=== PATIENT | male | born 1960 | race Caucasian/White ===

== ENCOUNTER 2017-01-30 16:44 | Inpatient (IN) ==
[2017-01-30] MEDS ORDERED: 0.9 % Sodium Chloride 1,000 ML IVC ONE (17:02)
[2017-01-30] MEDS ORDERED: Ondansetron 4 MG/2 ML VIAL IVP ONE (17:02)
[2017-01-30] MEDS ORDERED: *HR* Morphine 2 MG/ML SYRINGE IVP ONE (17:02)
--- NOTE | 2017-01-30 17:07 | Emergency Department Note ---
Disposition Clinical Impression: Diverticulitis Qualifiers: Diverticulitis site: large intestine Diverticulitis bleeding: without bleeding Diverticulitis complication: with abscess Qualified Code(s): K57.20 - Diverticulitis of large intestine with perforation and abscess without bleeding Disposition: Admitted As Inpatient Condition: Good Abdominal Pain HPI - General Chief Complaint: ED Abdominal Pain Stated Complaint: Diverticulitis Time Seen by Provider: 01/30/17 16:52 Source: patient Mode of arrival: private vehicle Limitations: no limitations Nursing Notes Reviewed: Yes Vital Signs Reviewed: Yes - History of Present Illness HPI Narrative: 56-year-old male history of diverticulitis with prior abscess formation 3 years ago treated nonoperatively who presents to the ER due to left lower quadrant abdominal pain. Patient states he has had pain since yesterday. Denies any fevers chills nausea vomiting or diarrhea at home. He had outpatient labs today that were not related to his symptoms but elected to come after. He reports 3 years ago he was diagnosed with diverticulitis and was hospitalized due to abscess. It was treated nonoperatively with IV antibiotics. States his last flare was roughly 1 year ago. He denies any other complaints. Pt Subjective Complaint: abdominal pain Onset (ago): day(s) Consistency: constant Location: LLQ Pain Severity: moderate Pain Scale: 5 Quality: stabbing Radiation: none Migration to: no migration Improves with: nothing Worsens with: nothing Context: history of similar episodes Associated symptoms: Denies: nausea, vomiting, diarrhea, fever Treatments prior to arrival: none - Related Data Home Medications Medication Instructions Recorded Confirmed No Known Home Drugs 01/30/17 01/30/17 Allergies Allergy/AdvReac Type Severity Reaction Status Date / Time No Known Allergies Allergy Verified 01/30/17 16:50 All systems ED: reviewed and negative except as stated. Constitutional: Denies: fever, chills Gastrointestinal: Reports: abdominal pain. Denies: nausea, vomiting, diarrhea Genitourinary: Denies: dysuria, hematuria Abdominal Pain PMH - Past Medical History Medical history: Reports: other Male Surgical History: Reports: no surgical history Psychiatric history: Reports: no psych history - Social History Smoking status: Never smoker Alcohol use: Reports: none Drug use: Reports: none Physical Exam - General Limitations: no limitations General appearance: alert, in no apparent distress - Head Head exam: atraumatic, normocephalic, normal inspection - Eye Eye exam: Present: normal appearance - ENT ENT exam: normal exam - Chest Chest inspection: Present: normal inspection, symmetric chest wall rise - Respiratory Respiratory exam: Present: normal lung sounds bilaterally - Cardiovascular Cardiovascular exam: Present: regular rate, normal rhythm, normal heart sounds - Abdominal Exam Abdominal exam: Present: soft, tenderness (There is moderate tenderness to palpation in the left upper and left lower quadrants without guarding or rigidity.) - Extremities Exam Extremities exam: Present: normal inspection, full ROM - Expanded Upper Extremity Exam Shoulder exam: Present: normal inspection, full ROM Arm exam: Present: normal inspection, full ROM Elbow exam: Present: normal inspection, full ROM Forearm/Wrist exam: Present: normal inspection, full ROM Hand exam: Present: normal inspection, full ROM - Expanded Lower Extremity Exam Hip/Pelvis exam: Present: normal inspection, full ROM Upper leg exam: Present: normal inspection, full ROM Knee exam: Present: normal inspection, full ROM Lower leg exam: Present: normal inspection, full ROM Ankle exam: Present: normal inspection, full ROM Foot/toe exam: Present: normal inspection, full ROM - Neurological Exam Neurological exam: Present: alert, other (GCS 15. Nonfocal) - Psychiatric Psychiatric exam: Present: normal affect, normal mood Course Course Narrative: Patient seen and examined. Afebrile here. We will obtain a CT scan of the abdomen and pelvis as well as labs. Patient given IV fluids, morphine and Zofran for pain and nausea. - Reevaluation(s) Reevaluation #1: Discussed results of imaging and lab work with the patient. He has a small abscess formation. No perforation identified. He is agreeable to staying in the hospital for IV antibiotics. Vital Signs Temperature 97.8 F 01/30/17 16:47 Pulse Rate 93 01/30/17 16:47 Respiratory Rate 20 01/30/17 16:47 Blood Pressure 127/88 01/30/17 16:47 O2 Sat by Pulse Oximetry 95 01/30/17 16:47 Temperature 98.1 F 01/30/17 20:24 Pulse Rate 76 01/30/17 20:24 Respiratory Rate 16 01/30/17 20:24 Blood Pressure 139/91 01/30/17 20:24 O2 Sat by Pulse Oximetry 96 01/30/17 20:24 Oxygen Delivery Oxygen Delivery Room Air Abdominal Pain - MDM Narrative Medical decision making narrative: 56-year-old male with history of diverticulitis presents to the ER to the left lower quadrant abdominal pain. Started yesterday. No fevers chills nausea vomiting or diarrhea at home. CT scan demonstrates acute diverticulitis with early abscess formation. Patient given IV Cipro and Flagyl here admitted to the hospitalist service for continued care. - Lab Data Lab results reviewed: Yes I reviewed the patient's lab results. Result diagrams: 01/30/17 17:13 01/30/17 17:13 Lab Results 01/30/17 01/30/17 Range/Units 17:13 17:13 WBC 12.2 H (4.3-11.1) K/mcL RBC 5.34 (4.19-5.50) M/mcL Hgb 17.0 H (12.9-16.9) g/dL Hct 49.2 (37.5-50.1) % MCV 92.1 (83.0-100.0) fL MCH 31.8 (28.0-33.3) pg MCHC 34.6 (31.6-35.5) g/dL RDW 12.2 (11.5-14.5) % Plt Count 179 (140-400) K/mcL MPV 11.5 (9.4-12.4) fL Immature Gran % 0.3 (0-4) % Seg Neutrophils % 72.8 % Lymphocytes % 13.2 % Monocytes % 11.4 % Eosinophils % 1.6 % Basophils % 0.7 % Neutrophils # 8.9 (1.6-8.9) K/mcL Lymphocytes # 1.6 (0.6-4.6) K/mcL Monocytes # 1.4 H (0.0-1.3) K/mcL Eosinophils # 0.2 (0.0-0.6) K/mcL Basophils # 0.1 (0.0-0.2) K/mcL Platelet Estimate Normal (Normal) Immature Plt Fraction 10.9 H (1.1-6.1) % Sodium 136 (136-145) mEq/L Potassium 4.2 (3.5-4.5) mEq/L Chloride 101 (98-109) mEq/L Carbon Dioxide 24 (19-29) mEq/L BUN 14 (8-26) mg/dL Creatinine 1.00 (0.72-1.25) mg/dL Est GFR ( Amer) > 60 (> 60) Est GFR (Non-Af Amer) > 60 (> 60) BUN/Creatinine Ratio 14 (6-26) Glucose 158 H (70-99) mg/dL Calculated Osmolality 286 (280-300) Calcium 9.9 (8.6-10.8) mg/dL Total Bilirubin 1.1 (0.2-1.2) mg/dL Direct Bilirubin 0.4 (0.0-0.5) mg/dL Indirect Bilirubin 0.7 (0.0-1.2) mg/dL AST 49 H (5-34) Units/L ALT 50 (0-55) Units/L Alkaline Phosphatase 107 (38-126) Units/L Serum Total Protein 8.0 (6.0-8.3) g/dL Albumin 3.7 (3.5-5.0) g/dL Globulin 4.3 H (2.4-3.5) g/dL Albumin/Globulin Ratio 0.9 L (1.1-2.2) Lipase 29 (8-78) Units/L - Radiology Data Radiology results reviewed: Yes I reviewed the patient's radiology results. Abdomen/Pelvis CT 01/30/17 17:03 IMPRESSION: 1. Acute diverticulitis of the descending colon at the level of the junction of the descending colon and sigmoid colon. There is an apparent small rim enhancing fluid collection which is closely associated with the wall of the colon measuring 1.2 x 1.8 cm concerning for small or early abscess formation. No free air identified. 2. 2 mm nonobstructing left renal stone. D/ / Orlando Rm MD / Orlando Rm MD Interpreting Provider: Orlando Rm MD S.B.A.R. - S.B.A.R. Situation: Demographics, MOA Background: Presenting Complaint, Relevant PMH, Meds, & Allergies Assessment: Vital Signs, Course and respsone to treatment, Exam Concerns, Patient/Family Expectation, Pertinant Lab Results Recommendation: Barrier(s) to disposition, Recommendation based on pending studies, treatments, or consults S.B.A.R. Report Given to: Dr. Marcin Sanchez Repor Time: 19:44 Attestation Statement - Attestation Attestation: I examined this patient and my medical decision-making was reviewed with the Resident Physician. I agree with the documented findings, disposition and treatment plan as described except to the extent set forth below. Acute diverticulitis with abscess. Antibiotics initiated. Will admit for surgical consultation.
[2017-01-30 17:21] LABS: Basophils # 0.1 K/mcL (0.0-0.2); Basophils % 0.7 %; Eosinophils # 0.2 K/mcL (0.0-0.6); Eosinophils % 1.6 %; Hematocrit 49.2 % (37.5-50.1); Immature Granulocytes % 0.3 % (0-4); Immature Platelets 10.9 % (1.1-6.1); Lymphocytes # 1.6 K/mcL (0.6-4.6); Lymphocytes % 13.2 %; Mean Corpuscular HGB Conc 34.6 g/dL (31.6-35.5); Mean Corpuscular Hemoglobin 31.8 pg (28.0-33.3); Mean Corpuscular Volume 92.1 fL (83.0-100.0); Mean Platelet Volume 11.5 fL (9.4-12.4); Monocytes # 1.4 K/mcL (0.0-1.3); Monocytes % 11.4 %; Neutrophils # 8.9 K/mcL (1.6-8.9); Platelet Count 179 K/mcL (140-400); Red Blood Count 5.34 M/mcL (4.19-5.50); Red Cell Distribution Width 12.2 % (11.5-14.5); Segmented Neutrophils % 72.8 %
[2017-01-30 17:23] LABS: Platelet Estimate Normal (Normal)
[2017-01-30 17:34] LABS: Alanine Aminotransferase 50 Units/L (0-55); Albumin 3.7 g/dL (3.5-5.0); Albumin/Globulin Ratio 0.9 (1.1-2.2); Alkaline Phosphatase 107 Units/L (38-126); Aspartate Amino Transferase 49 Units/L (5-34); BUN/Creatinine Ratio 14 (6-26); Bilirubin,Direct 0.4 mg/dL (0.0-0.5); Bilirubin,Indirect 0.7 mg/dL (0.0-1.2); Bilirubin,Total 1.1 mg/dL (0.2-1.2); Blood Urea Nitrogen 14 mg/dL (8-26); Calcium 9.9 mg/dL (8.6-10.8); Carbon Dioxide 24 mEq/L (19-29); Chloride 101 mEq/L (98-109); Globulin 4.3 g/dL (2.4-3.5); Glucose 158 mg/dL (70-99); Lipase 29 Units/L (8-78); Osmolality,Calculated 286 (280-300); Potassium 4.2 mEq/L (3.5-4.5); Sodium 136 mEq/L (136-145); eGFR For African Americans > 60 (> 60); eGFR For Non-African Americans > 60 (> 60)
[2017-01-30] MEDS ORDERED: MetroNIDAZOLE 500 MG/100 ML 500 MG/100 ML BAG IVPB ONE (19:18)
--- NOTE | 2017-01-30 21:47 | Event Note ---
Date of Encounter: 01/30/17 Time of Encounter: 21:46 Patient seen and examined with nurse practitioner. Acute diverticulitis with abscess. Ciprofloxacin and Flagyl. Keep NPO. Surgery consultation.
[2017-01-30] MEDS ORDERED: *HR* Morphine 2 MG/ML SYRINGE IVP PRN (21:59)
[2017-01-30] MEDS ORDERED: *HR* HYDROcodone/Acet 5/325 mg TABLET PO PRN (21:59)
[2017-01-30] MEDS ORDERED: Naloxone 0.4 MG/ML INJ IVP PRN (21:59)
[2017-01-30] MEDS ORDERED: Ondansetron 4 MG/2 ML VIAL IVP PRN (21:59)
[2017-01-30 22:04] LABS: C-Reactive Protein 31 mg/L (Less than 5)
--- NOTE | 2017-01-30 22:13 | Internal Med History&Physical ---
Date of Encounter: 01/30/17 Time of Encounter: 21:00 Assessment and Plan (1) Diverticulitis Current visit: Yes Status: Acute Hx of diverticulosis and diverticulitis. CT abdomen/pelvis shows acute diverticulitis of the descending colon at the level of the junction of the descending colon and sigmoid colon with apparent small rim-enhancing fluid collection which is closely associated with the wall of the colon measuring 1.2 1.8 cm concerning for small or early abscess formation. IVPB ciprofloxacin 400 mg Q12 and flagyl 500 mg Q6 for infection coverage. Surgery consult placed. Monitor f/u labs for WBC status. Patient does not currently meet sepsis criteria. Will monitor closely. Pt. at high risk for further morbidity based on infection/abscess and will be inpatient. Qualifiers: Diverticulitis site: large intestine Diverticulitis bleeding: without bleeding Diverticulitis complication: with abscess Qualified Code(s): K57.20 - Diverticulitis of large intestine with perforation and abscess without bleeding (2) Leukocytosis Current visit: Yes Status: Acute Acute leukocytosis with WBC of 12.2. IVPB ciprofloxacin and flagyl ordered for infection coverage. Monitor f/u labs. Qualifiers: Leukocytosis type: unspecified Qualified Code(s): D72.829 - Elevated white blood cell count, unspecified (3) Elevated AST (SGOT) Current visit: Yes Status: Acute Acute elevation of AST (49). Pt. denies heavy EtOH use, hx of hepatitis, or celiac disease. Hepatic panel ordered in a.m. labs. (4) History of diverticulosis Current visit: Yes Status: Chronic Hx of chronic diverticulosis. Pt. ate several candy bars w/nuts for several days prior to abdominal pain. Pt. educated on diverticulosis, diverticulitis, and what foods to avoid. (5) DVT prophylaxis Current visit: Yes Status: Acute Bilateral SCDs on LEs for DVT prophylaxis due to possible surgical intervention for abscess r/t diverticulitis. Internal Medicine - H&P: HPI Chief complaint: Abdominal pain Admitted From: Emergency Dept Plans for Post Hospital Care: Home History of present illness: Mr. Parra is a 56 year old male with medical history of diverticulosis presents from the ED with chief complaint of abdominal pain since yesterday. Patient reports he had similar pain 3 years ago with about of diverticulitis which did not require surgical intervention for diagnosis of abscess. Patient states he was placed on IV antibiotics. Patient describes pain as located in his left lower quadrant with aggravating factor of laying on his left side and relieving factors of walking and standing. Patient's reports he ate candy bars with nuts over the past several days. Patient reports flareup approximately 1 year ago. Patient denies any recent illness, fever, chills, nausea, vomiting, diarrhea, constipation, unusual bleeding, changes in vision, lightheadedness, dizziness, chest pain, palpitations, presyncope, or syncope. Past Med Surg Social Fam HX - Past Medical History Source: patient, old records reviewed, obtained from family Medical history: other (Diverticulosis) Psychiatric history: no psych history - Past Surgical History Surgical History: no surgical history - Social History Smoking Status: Former smoker Packs per day: 1 PPD - Reports quitting 20 years ago Alcohol use: none Drug use: none Current living situation: Home, With Family Activity Level: Independent ambulation, Very active Recent Out of Country Travel Within the Last 8 Weeks: No Exposure or Possible Exposure to Illness During Travel: No - Family History Father Race: Family Member Ethnicity: Non- Living Status: Age at : 62 Cause of : Colon cancer Hx Family Cardiac Disorders: Yes (NE) Hx Family Cancer: Yes (Colon) Mother Race: Family Member Ethnicity: Non- Living Status: Still Living Hx Family Cardiac Disorders: Yes (HTN) Hx Family Cancer: Yes (Breast) Hx Family Endocrine Disorder: Yes (DM) Brother Race: Family Member Ethnicity: Non- Living Status: Still Living Hx Family Medical Disorders: No Sister Race: Family Member Ethnicity: Non- Living Status: Still Living Hx Family Medical Disorders: No Internal Medicine - H&P: Meds No Known Home Drugs 01/30/17 [History] 3 Allergy/AdvReac Type Severity Reaction Status Date / Time No Known Allergies Allergy Verified 01/30/17 16:50 All Systems PM: A 10-system review of systems was performed and is negative for pertinent findings except as documented above in the HPI. - Constitutional Constitutional: no chills, no fever(s), no night sweats - EENT Eyes: no change in vision, no discharge, no pain, no photophobia Ears: no ear discharge, no ear pain, no tinnitus Nose, mouth and throat: no dysphagia, no nasal discharge, no neck pain, no sore throat - Breasts Breasts: as per HPI - Cardiovascular Cardiovascular ROS IM: no chest pain, no diaphoresis, no dyspnea, no lightheadedness, no palpitations, no syncope - Respiratory Respiratory: no cough, no dyspnea, no wheezing, no excessive phlegm production - Gastrointestinal Gastrointestinal: as per HPI, abdominal pain - Genitourinary Genitourinary ROS male: as per HPI - Musculoskeletal Musculoskeletal ROS IM: no numbness, no tingling - Integumentary Integumentary IM: no rash, no unusual bruising - Neurological Neurological ROS: no confusion, no convulsions, no focal weakness, no numbness, no tingling, no tremor(s) - Psychiatric Psychiatric: as per HPI - Endocrine Endocrine IM: as per HPI - Hematologic/Lymphatic Hematologic/Lymphatic: no easy bruising - Allergic/Immunologic Allergic/Immunologic: as per HPI - Constitutional Vitals: Temp Pulse Resp BP Pulse Ox 98.1 F 76 16 139/91 96 01/30/17 20:24 01/30/17 20:24 01/30/17 20:24 01/30/17 20:24 01/30/17 20:24 General appearance: Present: cooperative, mild distress, A&O X 3, pleasant, obese, answers questions appropriately - Head Head exam: Present: atraumatic, normocephalic - Eye Eye exam: Present: PERRL, conjuntiva pink, sclera anicteric Pupils: Present: PERRL - ENT ENT exam: Present: normal exam, normal external ear exam - Neck Neck exam general surgery: Present: normal inspection, supple, trachea midline. Absent: lymphadenopathy - Respiratory Respiratory exam: Present: CTAB. Absent: accessory muscle use, rales, rhonchi, wheezes - Cardiovascular Cardiovascular exam: Present: RRR, +S1, +S2. Absent: diastolic murmur, gallop, rubs, systolic murmur - GI/Abdominal GI/Abdominal exam: Present: guarding, normal bowel sounds, soft, tenderness - Rectal Rectal exam: Present: deferred - Additional comments: Gu exam deferred. - Extremities Exam Extremities exam: Present: warm, radial pulses palpable and symmetrical. Absent : calf tenderness, cyanotic, pedal edema - Back Exam Back exam: Present: normal inspection - Neurological Exam Neurological exam: Present: CN II-XII intact, oriented X3, no focal deficits. Absent: pronater drift, facial droop, speech deficit - Psychiatric Psychiatric exam: Present: normal affect, normal mood - Skin Skin exam: Present: dry, intact Internal Med - H&P Results - Labs CBC & Chem 7: 01/30/17 17:13 01/30/17 17:13 - Diagnostic Studies CT scan - abdomen Additional comments: Impressions Abdomen/Pelvis CT 01/30/17 17:03 IMPRESSION: 1. Acute diverticulitis of the descending colon at the level of the junction of the descending colon and sigmoid colon. There is an apparent small rim enhancing fluid collection which is closely associated with the wall of the colon measuring 1.2 x 1.8 cm concerning for small or early abscess formation. No free air identified. 2. 2 mm nonobstructing left renal stone. D/ / Orlando Rm MD / Orlando Rm MD Interpreting Provider: Orlando Rm MD
[2017-01-30] MEDS: 0.9 % Sodium Chloride 1,000 ML IVC SCH (22:50)
[2017-01-30] MEDS: MetroNIDAZOLE 500 MG/100 ML 500 MG/100 ML BAG IVPB SCH (22:50)
[2017-01-31] MEDS ORDERED: *HR* Heparin 5,000 UNIT/ML VIAL SQ SCH
[2017-01-31 04:44] LABS: Basophils % 0.5 %; Eosinophils # 0.2 K/mcL (0.0-0.6); Hematocrit 43.9 % (37.5-50.1); Immature Granulocytes % 0.6 % (0-4); Lymphocytes # 1.7 K/mcL (0.6-4.6); Lymphocytes % 21.2 %; Mean Corpuscular HGB Conc 33.7 g/dL (31.6-35.5); Mean Corpuscular Hemoglobin 32.2 pg (28.0-33.3); Mean Corpuscular Volume 95.4 fL (83.0-100.0); Mean Platelet Volume 11.7 fL (9.4-12.4); Monocytes # 1.1 K/mcL (0.0-1.3); Monocytes % 13.3 %; Neutrophils # 4.9 K/mcL (1.6-8.9); Platelet Count 190 K/mcL (140-400); Red Cell Distribution Width 12.4 % (11.5-14.5); Segmented Neutrophils % 61.4 %
[2017-01-31 04:49] LABS: Hemoglobin 14.8 g/dL (12.9-16.9)
[2017-01-31 04:51] LABS: Hemoglobin A1C 7.7 %
[2017-01-31 04:59] LABS: Alanine Aminotransferase 39 Units/L (0-55); Albumin 3.2 g/dL (3.5-5.0); Albumin/Globulin Ratio 0.9 (1.1-2.2); Alkaline Phosphatase 93 Units/L (38-126); Aspartate Amino Transferase 34 Units/L (5-34); BUN/Creatinine Ratio 13 (6-26); Bilirubin,Direct 0.3 mg/dL (0.0-0.5); Bilirubin,Indirect 0.8 mg/dL (0.0-1.2); Bilirubin,Total 1.1 mg/dL (0.2-1.2); Blood Urea Nitrogen 12 mg/dL (8-26); Calcium 8.8 mg/dL (8.6-10.8); Carbon Dioxide 28 mEq/L (19-29); Chloride 101 mEq/L (98-109); Chol/HDL Ratio 8.1 (0-4.9); Cholesterol 220 mg/dL (< 200); Globulin 3.7 g/dL (2.4-3.5); Glucose 135 mg/dL (70-99); HDL Cholesterol 27 mg/dL (40-59); LDL Cholesterol,Calculated 154 mg/dL (0-99); Magnesium 1.9 mg/dL (1.6-2.6); Osmolality,Calculated 282 (280-300); Sodium 135 mEq/L (136-145); Total Protein 6.9 g/dL (6.0-8.3); Triglycerides 196 mg/dL (< 150); eGFR For African Americans > 60 (> 60); eGFR For Non-African Americans > 60 (> 60)
[2017-01-31] MEDS: Famotidine 20 MG/2 ML VIAL IVP SCH ×2 (05:54→16:34)
[2017-01-31] MEDS: Pantoprazole 40 MG VIAL IVP SCH (05:54)
[2017-01-31] MEDS: Acetaminophen 325 MG TABLET PO PRN ×2 (06:03→19:51)
[2017-01-31] MEDS: 0.9 % Sodium Chloride 1,000 ML IVC SCH ×2 (08:56→16:34)
[2017-01-31] MEDS: MetroNIDAZOLE 500 MG/100 ML 500 MG/100 ML BAG IVPB SCH ×5 (08:56→23:07)
--- NOTE | 2017-01-31 09:40 | Internal Med Progress Note ---
Date of Encounter: 01/31/17 Time of Encounter: 09:37 - Assessment and plan (1) Diverticulitis Current Visit: Yes Status: Acute Assessment and plan: Bao Parra is a 56 year old male with PMH diverticulosis who presented to [facility] on 01/30/2017 with complaints of abdominal pain. He was foind to have acute diverticultis and was admitted for IV ATB. 1.Diverticulitis: Presented with abdominal pain. ABD CT with acute diverticulitis of the descending colon, with small fluid collection concerning for early abscess formation. No elevated WBC. Does not appear acute or toxic. Hemodynamically stable. Continue IV Cipro, Flagyl started on admission. Keep NPO, general surgery consulted 2. Diabetes: New diagnosis. Hgb A1c 7.7%. Start diabetes teaching. Initiate SSI, monitor blood sugars and titrate PRN. Plan on metformin at discharge. 3. Hyperlipidemia: LDL 154, initiate statin. Lexow modifications encouraged. 4. DVT prophylaxis: Lovenox Qualifiers: Diverticulitis site: large intestine Diverticulitis bleeding: without bleeding Diverticulitis complication: with abscess Qualified Code(s): K57.20 - Diverticulitis of large intestine with perforation and abscess without bleeding (2) Hyperlipidemia Current Visit: Yes Status: Acute Qualifiers: Hyperlipidemia type: pure hypercholesterolemia Qualified Code(s): E78.00 - Pure hypercholesterolemia, unspecified; E78.0 - Pure hypercholesterolemia (3) Diabetes Current Visit: Yes Status: Acute Qualifiers: Diabetes mellitus type: type 2 Diabetes mellitus complication status: without complication Diabetes mellitus [employer] insulin use: without fci use Qualified Code(s): E11.9 - Type 2 diabetes mellitus without complications (4) DVT prophylaxis Current Visit: Yes Status: Acute - Subjective Interval history: Seen and examined at bedside, patient is new to me. Information obtained from chart review and patient report. Says he has a little tenderness to left side but overall improved. No chest pain, no SOB - Constitutional Vitals: Temp Pulse Resp BP Pulse Ox 98.0 F 86 16 111/70 95 01/31/17 06:58 01/31/17 06:58 01/31/17 06:58 01/31/17 06:58 01/31/17 06:58 General appearance: Present: cooperative, mild distress, A&O X 3, pleasant, obese, answers questions appropriately - Head Head exam: Present: atraumatic, normocephalic - Eye Eye exam: Present: PERRL, conjuntiva pink, sclera anicteric Pupils: Present: PERRL - Neck Neck exam general surgery: Present: supple, trachea midline. Absent: lymphadenopathy - Respiratory Respiratory exam: Present: CTAB. Absent: accessory muscle use, rales, rhonchi, wheezes - Cardiovascular Cardiovascular exam: Present: RRR, +S1, +S2. Absent: diastolic murmur, gallop, rubs, systolic murmur - GI/Abdominal GI/Abdominal exam: Present: normal bowel sounds, soft, tenderness, no peritoneal signs. Absent: distended Additional comments: left side tenderness - Extremities Exam Extremities exam: Present: warm, radial pulses palpable and symmetrical. Absent : calf tenderness, cyanotic, pedal edema - Neurological Exam Neurological exam: Present: CN II-XII intact, oriented X3, no focal deficits. Absent: pronater drift, facial droop, speech deficit - Skin Skin exam: Present: dry, intact Internal Medicine: Result - Labs CBC & Chem 7: 01/31/17 03:58 01/31/17 03:58 Labs: Short CBC 01/31/17 Range/Units 03:58 WBC 8.0 (4.3-11.1) K/mcL Hgb 14.8 D (12.9-16.9) g/dL Hct 43.9 (37.5-50.1) % Plt Count 190 (140-400) K/mcL Neutrophils # 4.9 (1.6-8.9) K/mcL BMP 01/31/17 03:58 Sodium 135 L Potassium 4.0 Chloride 101 Carbon Dioxide 28 BUN 12 Creatinine 0.92 Glucose 135 H Calcium 8.8 Liver Function 01/31/17 Range/Units 03:58 Total Bilirubin 1.1 (0.2-1.2) mg/dL Direct Bilirubin 0.3 (0.0-0.5) mg/dL AST 34 (5-34) Units/L ALT 39 (0-55) Units/L Alkaline Phosphatase 93 (38-126) Units/L Albumin 3.2 L (3.5-5.0) g/dL Consult Discharge Plan - Plan Referrals: Carmen Douglas, [facility] [Primary Care Provider] - 02/07/17 1:00 pm
[2017-01-31] MEDS ORDERED: *HR* Dextrose 50 % in Water (Syg) 50 ML SYRINGE IVP PRN (09:42)
[2017-01-31] MEDS ORDERED: Dextrose Gel 15 GM PO PRN ×2 (09:42)
[2017-01-31] MEDS ORDERED: D5% in Water 1,000 ML IVC PRN (09:42)
--- NOTE | 2017-01-31 09:49 | General Surgery Consult Note ---
Date of Encounter: 01/31/17 Time of Encounter: 10:23 Assessment and Plan (1) Colonic diverticular abscess Current Visit: Yes Status: Acute CT shows 1.2 x1.8 cm small rim-enhancing fluid collection concerning for small abscess. Patient started on IV cipro and flagyl. Vitals within normal limits. WBC decreased from 12.2 to 8.0 and symptomatically improving. Plan: - Continue IV Cipro and Flagyl - Diet: clears and slowly advance to low fiber diet as tolerated - pain control - no need for surgical intervention at this time, will continue to follow as diet progresses - will need f/u with surgery in 2-3 weeks for colonoscopy in 6-8 weeks (2) Elevated AST (SGOT) Current Visit: Yes Status: Acute Initially AST= 49, currently 34. Hepatic panel within normal limits. Total and LDL elevated. HDL low. Need for risk ASCVD risk stratification for statin therapy. (3) DVT prophylaxis Current Visit: Yes Status: Acute SCD on calfs and encourage ambulation. History of Present Illness Consult date: 01/31/17 Reason for consult: abdominal pain Requesting physician: Pepe Linder History of present illness: Patient is a 56 y/o male with a pmh of diverticular abscess 3 years ago treated nonsurgically presented to the ED with left lower quadrant pain for one day and was found to have a diverticular abscess and surgery was consulted for possible surgical management. Patient denies having nausea, vomiting, fever, diarrhea, dysuria. CT abdomen/pelvis reports "acute diverticulitis of the descending colon at the level of the junction of the descending colon and sigmoid colon with apparent small rim-enhancing fluid collection which is closely associated with the wall of the colon measuring 1.21.8 cm concerning for small or early abscess formation." Patient was initated on IV antibiotics of ciprofloxacin 400 mg every 12 hours and Flagyl 500 mg every 6 hours. Vitals have been within normal limits since admission except decrease in pulse ox while sleeping. White blood cell count initially on presentation was 12.2 and has decreased to 8.0 within the last 12 hours. Today patient is denying any abdominal pain at rest with only taking Tylenol this morning for a SÁNCHEZ. He continues to deny N/V and states that he is hungry. Of note patient does have a family hx of colon ca. His last colonoscopy was 3 years ago without concerning findings. Past Med Surg Social Fam HX - Past Medical History Medical history: other (Diverticulosis) Psychiatric history: no psych history - Past Surgical History Surgical History: no surgical history - Social History Smoking Status: Former smoker Packs per day: 1 PPD - Reports quitting 20 years ago Alcohol use: none Drug use: none - Family History Father Race: Family Member Ethnicity: Non- Living Status: Age at : 62 Cause of : Colon cancer Hx Family Cardiac Disorders: Yes (RI) Hx Family Cancer: Yes (Colon) Mother Race: Family Member Ethnicity: Non- Living Status: Still Living Hx Family Cardiac Disorders: Yes (HTN) Hx Family Cancer: Yes (Breast) Hx Family Endocrine Disorder: Yes (DM) Brother Race: Family Member Ethnicity: Non- Living Status: Still Living Hx Family Medical Disorders: No Sister Race: Family Member Ethnicity: Non- Living Status: Still Living Hx Family Medical Disorders: No Medications and Allergies No Known Home Drugs 01/30/17 [History] 3 Allergy/AdvReac Type Severity Reaction Status Date / Time No Known Allergies Allergy Verified 01/30/17 16:50 Review of Systems All systems PM: A 10-system review of systems was performed and is negative for pertinent findings except as documented above in the HPI. General Surgery Exam Initial Vital Signs Temp Pulse Resp BP Pulse Ox 97.8 F 93 20 127/88 95 01/30/17 16:47 01/30/17 16:47 01/30/17 16:47 01/30/17 16:47 01/30/17 16:47 - Additional Findings Constitutional: Alert, in no acute distress, well nourished, well developed. Head: Normocephalic, atraumatic, normal contour and symmetric, no masses, lesions or scars Heart: Normal, regular rate and rhythm, no murmurs Lungs: Clear to auscultation, no wheezes, rales, or rhonchi Abdomen: mild tenderness with deep palpation on the lateral aspect of the LLQ, Soft, nondistended and no masses palpable, bowel sounds present and normal, no guarding or rigidity. Extremities: No clubbing, cyanosis, or edema, radial pulse +2/4, capillary refill <2sec. Skin: Skin warm and dry, no lesions, no rashes, no jaundice Neurologic: Cranial nerves II through XII grossly intact, no focal deficits, strength within normal limits in all extremities Psych: Cooperative with exam, good eye contact, cognitive function intact, judgment good insight good, speech clear, thought process logical, and goal directed Exam Initial Vital Signs Temp Pulse Resp BP Pulse Ox 97.8 F 93 20 127/88 95 01/30/17 16:47 01/30/17 16:47 01/30/17 16:47 01/30/17 16:47 01/30/17 16:47 Results - Labs 01/31/17 03:58 01/31/17 03:58 Abnormal lab results Immature Plt Fraction 10.9 % (1.1-6.1) H 01/30/17 17:13 Sodium 135 mEq/L (136-145) L 01/31/17 03:58 Glucose 135 mg/dL (70-99) H 01/31/17 03:58 Hemoglobin A1c 7.7 % (-5.6) H 01/31/17 03:58 C-Reactive Protein 31 mg/L (Less than 5) H 01/30/17 17:13 Albumin 3.2 g/dL (3.5-5.0) L 01/31/17 03:58 Globulin 3.7 g/dL (2.4-3.5) H 01/31/17 03:58 Albumin/Globulin Ratio 0.9 (1.1-2.2) L 01/31/17 03:58 Triglycerides 196 mg/dL (< 150) H 01/31/17 03:58 Cholesterol 220 mg/dL (< 200) H 01/31/17 03:58 LDL Cholesterol, Calc 154 mg/dL (0-99) H 01/31/17 03:58 VLDL Cholesterol, Calc 39 mg/dL (< 31) H 01/31/17 03:58 HDL Cholesterol 27 mg/dL (40-59) L 01/31/17 03:58 Cholesterol/HDL Ratio 8.1 (0-4.9) H 01/31/17 03:58 Diabetes panel 01/31/17 01/31/17 Range/Units 03:58 03:58 Sodium 135 L (136-145) mEq/L Potassium 4.0 (3.5-4.5) mEq/L Chloride 101 (98-109) mEq/L Carbon Dioxide 28 (19-29) mEq/L BUN 12 (8-26) mg/dL Creatinine 0.92 (0.72-1.25) mg/dL Glucose 135 H (70-99) mg/dL Hemoglobin A1c 7.7 H ( - 5.6) % Calcium 8.8 (8.6-10.8) mg/dL AST 34 (5-34) Units/L ALT 39 (0-55) Units/L Alkaline Phosphatase 93 (38-126) Units/L Albumin 3.2 L (3.5-5.0) g/dL Triglycerides 196 H (< 150) mg/dL HDL Cholesterol 27 L (40-59) mg/dL Calcium panel 01/31/17 Range/Units 03:58 Calcium 8.8 (8.6-10.8) mg/dL Albumin 3.2 L (3.5-5.0) g/dL Pituitary panel 01/31/17 Range/Units 03:58 Sodium 135 L (136-145) mEq/L Potassium 4.0 (3.5-4.5) mEq/L Chloride 101 (98-109) mEq/L Carbon Dioxide 28 (19-29) mEq/L BUN 12 (8-26) mg/dL Creatinine 0.92 (0.72-1.25) mg/dL Glucose 135 H (70-99) mg/dL Calcium 8.8 (8.6-10.8) mg/dL Adrenal panel 01/31/17 Range/Units 03:58 Sodium 135 L (136-145) mEq/L Potassium 4.0 (3.5-4.5) mEq/L Chloride 101 (98-109) mEq/L Carbon Dioxide 28 (19-29) mEq/L BUN 12 (8-26) mg/dL Creatinine 0.92 (0.72-1.25) mg/dL Glucose 135 H (70-99) mg/dL Calcium 8.8 (8.6-10.8) mg/dL Total Bilirubin 1.1 (0.2-1.2) mg/dL AST 34 (5-34) Units/L ALT 39 (0-55) Units/L Alkaline Phosphatase 93 (38-126) Units/L Albumin 3.2 L (3.5-5.0) g/dL All other labs normal. - Imaging CT scan - abdomen: report reviewed, image reviewed Consult Discharge Plan - Plan Referrals: Carmen Douglas CNP [Primary Care Provider] - 02/07/17 1:00 pm Bhanu Hyman DO [Partnered Physician] - 02/18/17 9:10 am
[2017-01-31] MEDS: *HR* Enoxaparin 40 MG/0.4 ML SYRINGE SQ SCH (13:51)
[2017-01-31] MEDS: Insulin LISPRO 300 UNITS/3 ML VIAL SQ SCH ×3 (13:52→23:10)
[2017-02-01 03:28] LABS: Hematocrit 42.3 % (37.5-50.1); Hemoglobin 14.4 g/dL (12.9-16.9); Mean Corpuscular Hemoglobin 32.2 pg (28.0-33.3); Mean Corpuscular Volume 94.6 fL (83.0-100.0); Mean Platelet Volume 11.2 fL (9.4-12.4); Platelet Count 174 K/mcL (140-400); Red Blood Count 4.47 M/mcL (4.19-5.50); Red Cell Distribution Width 12.1 % (11.5-14.5)
[2017-02-01 03:44] LABS: Alanine Aminotransferase 32 Units/L (0-55); Albumin/Globulin Ratio 0.8 (1.1-2.2); Alkaline Phosphatase 88 Units/L (38-126); Aspartate Amino Transferase 25 Units/L (5-34); BUN/Creatinine Ratio 9 (6-26); Bilirubin,Total 0.6 mg/dL (0.2-1.2); Blood Urea Nitrogen 9 mg/dL (8-26); Calcium 8.8 mg/dL (8.6-10.8); Carbon Dioxide 28 mEq/L (19-29); Chloride 104 mEq/L (98-109); Globulin 3.7 g/dL (2.4-3.5); Glucose 136 mg/dL (70-99); Osmolality,Calculated 291 (280-300); Potassium 4.2 mEq/L (3.5-4.5); Sodium 140 mEq/L (136-145); Total Protein 6.7 g/dL (6.0-8.3); eGFR For African Americans > 60 (> 60); eGFR For Non-African Americans > 60 (> 60)
[2017-02-01] MEDS: MetroNIDAZOLE 500 MG/100 ML 500 MG/100 ML BAG IVPB SCH (06:17)
[2017-02-01] MEDS: *HR* Enoxaparin 40 MG/0.4 ML SYRINGE SQ SCH (06:17)
[2017-02-01] MEDS: Pantoprazole 40 MG VIAL IVP SCH (06:17)
[2017-02-01] MEDS: Famotidine 20 MG/2 ML VIAL IVP SCH (06:17)
[2017-02-01] MEDS ORDERED: Insulin LISPRO 300 UNITS/3 ML VIAL SQ SCH ×2 (07:30→21:00)
[2017-02-01 07:53] VITALS: BP 117/79
[2017-02-01] MEDS: 0.9 % Sodium Chloride 1,000 ML IVC SCH (10:26)
--- NOTE | 2017-02-01 11:04 | Discharge Summary ---
Date of Encounter: 02/01/17 Time of Encounter: 10:48 - Discharge Diagnosis (1) Diverticulitis Priority: Primary Status: Acute Comments: Bao Parra is a 56 year old male with PMH diverticulosis who presented to [facility] on 01/30/2017 with complaints of abdominal pain. He was found to have acute diverticultis and was admitted for IV ATB. His symptoms significantly improved and he was discharged home on 02/01/2017 with antibiotics and outpatient follow-up. 1.Diverticulitis: Presented with abdominal pain. ABD CT with acute diverticulitis of the descending colon, with small fluid collection concerning for early abscess formation. No elevated WBC. Remained hemodynamically stable. Initially treated IV Cipro, Flagyl. Evaluated by general surgery who noted no need for surgical intervention at this time. Significantly improved and tolerating regular diet and pain free at time of discharge. Continue Cipro and Flagyl for total course of 10 days. Will need to follow-up with General Surgery in 2-3 weeks. Will need Colonoscopy in 6-8 weeks per general surgery recommendations. 2. Diabetes: New diagnosis. Hgb A1c 7.7%. Treated with SSI while inpatient. Discharge home on metformin. Follow-up with PCP within 1-2 weeks. 3. Hyperlipidemia: LDL 154. Statin initiated. Lifestyle modifications encouraged. Recommend follow-up with PCP in 1-2 weeks Qualifiers: Diverticulitis site: large intestine Diverticulitis bleeding: without bleeding Diverticulitis complication: with abscess Qualified Code(s): K57.20 - Diverticulitis of large intestine with perforation and abscess without bleeding (2) Hyperlipidemia Priority: Primary Status: Acute Qualifiers: Hyperlipidemia type: pure hypercholesterolemia Qualified Code(s): E78.00 - Pure hypercholesterolemia, unspecified; E78.0 - Pure hypercholesterolemia (3) Diabetes Priority: Primary Status: Acute Qualifiers: Diabetes mellitus type: type 2 Diabetes mellitus complication status: without complication Diabetes mellitus assistant terminal manager insulin use: without assistant terminal manager use Qualified Code(s): E11.9 - Type 2 diabetes mellitus without complications - Discharge Medications Prescriptions: Atorvastatin Calcium [Lipitor] 20 mg PO HS #30 tablet Ciprofloxacin HCl [Cipro] 500 mg PO Q12H #20 tablet metFORMIN [Glucophage] 500 mg PO BIDWM #60 tablet metroNIDAZOLE [Flagyl] 500 mg PO TID #30 tablet Home Medications: Atorvastatin Calcium [Lipitor] 20 mg PO HS #30 tablet 10/21/17 [Rx] Ciprofloxacin HCl [Cipro] 500 mg PO Q12H #20 tablet 02/01/17 [Rx] metFORMIN [Glucophage] 500 mg PO BIDWM #60 tablet 02/01/17 [Rx] metroNIDAZOLE [Flagyl] 500 mg PO TID #30 tablet 02/01/17 [Rx] Allergies/Adverse Reactions: 3 Allergy/AdvReac Type Severity Reaction Status Date / Time No Known Allergies Allergy Verified 01/30/17 16:50 Date of admission: 01/30/17 21:59 Primary care physician: Carmen Douglas CNP Discharging clinician: Mckenzie Patel Anticipated date of discharge: 02/01/17 - Patient Status Disposition: Home, Self-Care Functional capacity at discharge: independent ambulation Overall status at discharge: patient is back to baseline - Discharge Instructions Instructions: How to Check Your Blood Sugar (DC), Diabetes Mellitus Type 2 in Adults (DC), Diabetes Mellitus Type 2 in Adults (GEN), Meal Planning with Diabetes Exchanges (DC), Hyperlipidemia (DC), Infectious Colitis (GEN), Low Fiber Diet (GEN), Diverticulitis Diet (DC) Follow Up With: Carmen Douglas CNP [Primary Care Provider] - 02/07/17 1:00 pm - Diet and Activity Activity: resume usual activities as tolerated Diet: diabetic diet, low fat, low cholesterol Interval History: Seen and examined at bedside. Says he feels much better and has no abdominal pain. He is tolerating regular diet. He has no complaints and wants to go home today. Discussed with him at length new diagnosis of diabetes and he will be discharged home on metformin. He will also need to check blood sugar 3 times a day and follow-up with PCP within 1-2 weeks. Lifestyle modifications encouraged. Hospital course: See assessment and plan for hospital course - Time Spent with Patient Total time spent providing and/or coordinating discharge services: Greater than 30 minutes (46 minutes spent on discharge) - Constitutional Vitals: Temp Pulse Resp BP Pulse Ox 97.9 F 85 16 117/79 93 02/01/17 07:52 02/01/17 07:52 02/01/17 07:52 02/01/17 07:52 02/01/17 07:52 General appearance: Present: cooperative, mild distress, A&O X 3, morbidly obese , pleasant, obese, answers questions appropriately - Head Head exam: Present: atraumatic, normocephalic - Eye Eye exam: Present: PERRL, conjuntiva pink, sclera anicteric Pupils: Present: PERRL - Neck Neck exam general surgery: Present: supple, trachea midline. Absent: lymphadenopathy - Respiratory Respiratory exam: Present: CTAB. Absent: accessory muscle use, rales, rhonchi, wheezes - Cardiovascular Cardiovascular exam: Present: RRR, +S1, +S2. Absent: diastolic murmur, gallop, rubs, systolic murmur - GI/Abdominal GI/Abdominal exam: Present: normal bowel sounds, soft, no peritoneal signs. Absent: distended, tenderness - Extremities Exam Extremities exam: Present: warm, radial pulses palpable and symmetrical. Absent : calf tenderness, cyanotic, pedal edema - Neurological Exam Neurological exam: Present: CN II-XII intact, oriented X3, no focal deficits. Absent: pronater drift, facial droop, speech deficit - Skin Skin exam: Present: dry, intact
--- NOTE | 2017-02-01 13:42 | General Surgery Progress Note ---
Date of Encounter: 02/01/17 Time of Encounter: 08:45 - Assessment and Plan (1) Colonic diverticular abscess Status: Acute CT shows 1.2 x1.8 cm small rim-enhancing fluid collection concerning for small abscess. Patient started on IV cipro and flagyl. Vitals within normal limits. WBC decreased from 12.2 to 6.6 and symptomatically improving. Plan: - switch to PO antibiotics for discharge - Diet: clears and slowly advance to low fiber diet as tolerated - pain control - okay to d/c per surgery - will need f/u with surgery in 2-3 weeks for colonoscopy in 6-8 weeks. Surgery office visit scheduled. (2) Elevated AST (SGOT) Status: Acute Initially AST= 49, currently 34. Hepatic panel within normal limits. Total and LDL elevated. HDL low. Need for risk ASCVD risk stratification for statin therapy. (3) DVT prophylaxis Status: Acute SCD on calfs and encourage ambulation. Subjective Narrative: Today patient is not having any pain and he tolerated breakfast of fulls was without any nausea or vomiting or increasing pain. Objective Vital Signs - Last 8 Hours Temp Pulse Resp BP Pulse Ox 02/01/17 07:52 97.9 F 85 16 117/79 93 Intake and Output 01/31/17 02/01/17 02/01/17 23:59 07:59 15:59 Intake Total 1800 / 1800 1100 / 1100 360 / 360 Balance 1800 / 1800 1100 / 1100 360 / 360 Intake: IV Fluids 1300 / 1300 1100 / 1100 0.9 % Sodium Chloride 1,000 ML 1000 / 1000 1000 / 1000 @ 100 mls/hr IVC .Q10H [facility] Rx#: [id number] Cipro Premix 400 MG/200 ML 400 200 / 200 mg In 200 ml @ 200 mls/hr IVPB Q12HR [facility] Rx#:[id number] Flagyl Premix 500 MG/100 ML 500 100 / 100 100 / 100 mg In 100 ml @ 100 mls/hr IVPB Q6HR [facility] Rx#:[id number] Oral 500 / 500 360 / 360 Other: Meal Breakfast Weight 111.2 kg Blood Glucose* 182 139 Patient Weight 02/01/17 23:59 Weight 111.2 kg - Additional Exam Constitutional: Alert, in no acute distress, well nourished, well developed. Head: Normocephalic, atraumatic, normal contour and symmetric, no masses, lesions or scars Heart: Normal, regular rate and rhythm, no murmurs Lungs: Clear to auscultation, no wheezes, rales, or rhonchi Abdomen: mild tenderness with deep palpation on the lateral aspect of the LLQ, Soft, nondistended and no masses palpable, bowel sounds present and normal, no guarding or rigidity. Extremities: No clubbing, cyanosis, or edema, radial pulse +2/4, capillary refill <2sec. Skin: Skin warm and dry, no lesions, no rashes, no jaundice Neurologic: Cranial nerves II through XII grossly intact, no focal deficits, strength within normal limits in all extremities Psych: Cooperative with exam, good eye contact, cognitive function intact, judgment good insight good, speech clear, thought process logical, and goal directed - Labs 02/01/17 03:09 02/01/17 03:09 Diabetes panel 02/01/17 Range/Units 03:09 Sodium 140 (136-145) mEq/L Potassium 4.2 (3.5-4.5) mEq/L Chloride 104 (98-109) mEq/L Carbon Dioxide 28 (19-29) mEq/L BUN 9 (8-26) mg/dL Creatinine 0.96 (0.72-1.25) mg/dL Glucose 136 H (70-99) mg/dL Calcium 8.8 (8.6-10.8) mg/dL AST 25 (5-34) Units/L ALT 32 (0-55) Units/L Alkaline Phosphatase 88 (38-126) Units/L Albumin 3.0 L (3.5-5.0) g/dL Calcium panel 02/01/17 Range/Units 03:09 Calcium 8.8 (8.6-10.8) mg/dL Albumin 3.0 L (3.5-5.0) g/dL Pituitary panel 02/01/17 Range/Units 03:09 Sodium 140 (136-145) mEq/L Potassium 4.2 (3.5-4.5) mEq/L Chloride 104 (98-109) mEq/L Carbon Dioxide 28 (19-29) mEq/L BUN 9 (8-26) mg/dL Creatinine 0.96 (0.72-1.25) mg/dL Glucose 136 H (70-99) mg/dL Calcium 8.8 (8.6-10.8) mg/dL Adrenal panel 02/01/17 Range/Units 03:09 Sodium 140 (136-145) mEq/L Potassium 4.2 (3.5-4.5) mEq/L Chloride 104 (98-109) mEq/L Carbon Dioxide 28 (19-29) mEq/L BUN 9 (8-26) mg/dL Creatinine 0.96 (0.72-1.25) mg/dL Glucose 136 H (70-99) mg/dL Calcium 8.8 (8.6-10.8) mg/dL Total Bilirubin 0.6 (0.2-1.2) mg/dL AST 25 (5-34) Units/L ALT 32 (0-55) Units/L Alkaline Phosphatase 88 (38-126) Units/L Albumin 3.0 L (3.5-5.0) g/dL Consult Discharge Plan - Plan Instructions: Diverticulitis (DC), Low Fiber Diet (GEN), How to Check Your Blood Sugar (DC), Diabetes Mellitus Type 2 in Adults (DC), Diabetes Mellitus Type 2 in Adults (GEN), Meal Planning with Diabetes Exchanges (DC), Diverticulitis Diet (DC), Infectious Colitis (GEN), Hyperlipidemia (DC) Referrals: Carmen Douglas CNP [Primary Care Provider] - 02/07/17 1:00 pm Prescriptions: Atorvastatin Calcium [Lipitor] 20 mg PO HS #30 tablet Ciprofloxacin HCl [Cipro] 500 mg PO Q12H #20 tablet metFORMIN [Glucophage] 500 mg PO BIDWM #60 tablet metroNIDAZOLE [Flagyl] 500 mg PO TID #30 tablet
== END 2017-02-01 12:55 | disposition home or self-care (01) | DRG 392 ==
LOC: 3BNU 16:44 → EMEROO 16:44 → 3BNU 20:28
PROVIDERS: ADMIT Internal Medicine; ATTEND Registered Nurse